=== PATIENT | male | born 1940 | race Two or more races ===

== ENCOUNTER 2017-10-22 19:22 | Emergency (ER) | payer OTHER ==
[~2017-10-22] VITALS: Ht 182.9 cm; Wt 88.5 kg
== END 2017-10-22 22:18 | disposition home or self-care (01) ==
LOC: ER 19:22
DX: M54.2 Cervicalgia (principal); T18.128A Food in esophagus causing other injury, initial encounter; X58.XXXA Exposure to other specified factors, initial encounter; Y93.89 Activity, other specified; Y92.89 Other specified places as the place of occurrence of the external cause; Y99.8 Other external cause status

== ENCOUNTER 2017-10-23 12:10 | Outpatient (CLI) | payer OTHER | END 2017-10-23 13:37 | disposition home or self-care (01) | LOC: TOM 12:10 | DX: R13.14 Dysphagia, pharyngoesophageal phase (principal) ==

== ENCOUNTER 2017-10-25 08:24 | Outpatient (CLI) | payer OTHER | END 2017-10-25 08:35 | disposition home or self-care (01) | LOC: RX STUDY 08:24 | DX: R13.19 Other dysphagia (principal) ==

== ENCOUNTER 2017-10-30 10:48 | Outpatient (CLI) | payer OTHER ==
[~2017-10-30] VITALS: Ht 177.8 cm; Wt 95.3 kg
== END 2017-10-30 11:10 | disposition home or self-care (01) ==
LOC: OFIC 805 10:48
DX: J04.0 Acute laryngitis (principal); K21.9 Gastro-esophageal reflux disease without esophagitis; J02.8 Acute pharyngitis due to other specified organisms; R13.19 Other dysphagia

== ENCOUNTER 2017-11-12 11:04 | Outpatient (CLI) | payer OTHER ==
[~2017-11-12] VITALS: Ht 152.4 cm; Wt 95.3 kg
== END 2017-11-12 11:20 | disposition home or self-care (01) ==
LOC: OFIC 805 11:04
DX: K21.0 Gastro-esophageal reflux disease with esophagitis (principal); R13.19 Other dysphagia

== ENCOUNTER 2019-03-25 13:41 | Outpatient (CLI) | payer OTHER | END 2019-03-25 13:50 | disposition home or self-care (01) | LOC: RAD 501 13:41 | DX: M54.2 Cervicalgia (principal); M54.5 Low back pain ==

== ENCOUNTER 2019-04-07 14:22 | Outpatient (CLI) | payer OTHER | END 2019-04-07 14:46 | disposition home or self-care (01) | LOC: NUCLEAR 14:22 | DX: I65.29 Occlusion and stenosis of unspecified carotid artery (principal) ==

== ENCOUNTER 2022-03-21 07:25 | Outpatient (CLI) | payer OTHER | END 2022-03-21 07:28 | disposition home or self-care (01) | LOC: LAB 07:25 | PROVIDERS: ATTEND Radiology Diagnostic Radiology | DX: M54.07 Panniculitis affecting regions of neck and back, lumbosacral region (principal) ==

== ENCOUNTER 2022-03-22 06:59 | Outpatient (CLI) | payer OTHER | END 2022-03-22 07:25 | disposition home or self-care (01) | LOC: MRI 06:59 | PROVIDERS: ATTEND Internal Medicine | DX: M25.561 Pain in right knee (principal); M25.562 Pain in left knee; M54.17 Radiculopathy, lumbosacral region | CPT/HCPCS: 72158; 73721; Q9965; 72149 ==

== ENCOUNTER 2023-03-14 11:34 | Outpatient (CLI) | payer OTHER | END 2023-03-14 11:36 | disposition home or self-care (01) | LOC: NUCLEAR 11:34 | PROVIDERS: ATTEND Internal Medicine | DX: I11.9 Hypertensive heart disease without heart failure (principal); Z01.810 Encounter for preprocedural cardiovascular examination ==

== ENCOUNTER 2024-05-27 07:13 | Outpatient (CLI) | payer OTHER | END 2024-05-27 07:14 | disposition home or self-care (01) | LOC: NUCLEAR 07:13 | PROVIDERS: ATTEND Internal Medicine | DX: I20.9 Angina pectoris, unspecified (principal) | CPT/HCPCS: 78452; 93017; A9500; J0153 ==

== ENCOUNTER 2025-01-05 11:05 | Outpatient (CLI) | payer OTHER | END 2025-01-05 11:09 | disposition home or self-care (01) | LOC: RAD 11:05 | PROVIDERS: ATTEND Internal Medicine | DX: J44.9 Chronic obstructive pulmonary disease, unspecified (principal) ==

== ENCOUNTER 2025-01-05 14:09 | Inpatient (IN) | payer OTHER ==
[~2025-01-05] VITALS: Ht 180.3 cm; Wt 189.6 kg
[2025-01-05 14:58] LABS: HEMATOCRIT 36.2 % (39.0-48.0); HEMOGLOBIN 12.4 g/dL (13-16.00); MEAN CELL VOLUME 88.9 fL (80.0-100.00); MEAN CORPUSCULAR HEMOGLOBIN 30.3 pg (27.00-32.0); MEAN CORPUSCULAR HGB CONC 34.1 g/dl (32.0-36.0); PLATELET COUNT 453 K/uL (150-450); RED BLOOD COUNT 4.08 M/uL (4.00-6.00); RED CELL DISTRIBUTION WIDTH 14.5 % (11.5-14.5)
[2025-01-05 15:39] LABS: INR 1.22; PARTIAL THROMBOPLASTIN TIME 36.9 SECONDS (22.0-34.0); PROTHROMBIN TIME 13.1 SECONDS (9.0-11.5)
[2025-01-05 16:17] LABS: ALBUMIN 2.9 gm/dL (3.4-5.0); BILIRUBIN TOTAL 0.48 mg/dL (0.3-1.2); CALCIUM 9.6 mg/dL (8.5-10.1); CREATININE SERUM 1.41 mg/dL (0.70-1.30); GFR 47.77; GLOBULINA 5.5 G/DL (2.4-3.5); POTASSIUM 5.27 mEq/L (3.5-5.1); TOTAL PROTEIN 8.4 gm/dL (6.4-8.2)
[2025-01-05 16:38] VITALS: BP 123/68; O2SAT 99
[2025-01-05] MEDS ORDERED: 0.9 % SODIUM CHLORIDE 1,000 ML IV SCH (17:15)
[2025-01-05] MEDS ORDERED: ALBUTEROL SULFATE 3 ML/2.5 MG AMPUL.NEB IH SCH (18:00)
[2025-01-05] MEDS ORDERED: IRON FUM,PS/FOLIC/BCOMP,C NO.9 1 CAP CAPSULE PO SCH (18:40)
[2025-01-05] MEDS ORDERED: CEFTRIAXONE SODIUM 2,000 MG VIAL IV SCH (18:41)
[2025-01-05] MEDS ORDERED: SODIUM POLYSTYRENE SULFONATE 30G/8 TSP PO STA (18:41)
[2025-01-05] MEDS ORDERED: AZITHROMYCIN 500 MG VIAL IV SCH (18:42)
[2025-01-05] MEDS ORDERED: AZITHROMYCIN 500 MG VIAL IV ONE (18:49)
[2025-01-05 19:10] LABS: ABG PH 7.428 (7.35-7.45); ABG PO2 91.6 mmHg (80-100); ABG pCO2 31.2 mmHg (35-45); BICARBONATE 20.1 mmol/l (23-25); SaO2 97.2 %; Tco2 21.1 mmol/l
[2025-01-05 20:22] LABS: allen test SATISFACTORY; o2 21 %; puncture site RADIAL LEFT
[2025-01-05] MEDS ORDERED: ALPRAzolam 0.25 MG TABLET PO SCH (21:00)
[2025-01-05] MEDS ORDERED: FAMOTIDINE/PF 20 MG/2 ML VIAL IV SCH (21:00)
[2025-01-05 21:20] LABS: PH,URINE 5.5 (5.0-8.0); URINE APPEARANCE Clear; URINE BILIRRUBIN Negative (NEGATIVE); URINE BLOOD Negative; URINE COLOR Yellow; URINE GLUCOSE Negative (NEGATIVE); URINE KETONE Negative (NEGATIVE); URINE LEUKOCYTE Small; URINE NITRATE Negative; URINE PROTEIN Negative (NEGATIVE); URINE UROBILINOGEN 0.2 E.U./dl
[2025-01-05 21:24] LABS: URINE BACTERIA 48.9 uL (0.0-1933); URINE WBC 61.2 uL (0.0-23.2)
[2025-01-05 21:35] LABS: URINE CAST 0.73 uL (0.0-1.40); URINE RBC 1.6 uL (0.0-20.8)
[2025-01-06 01:02] VITALS: BP 137/78; O2SAT 96
[2025-01-06] MEDS ORDERED: AZITHROMYCIN 500 MG VIAL IV ONE (07:38)
[2025-01-06 07:39] LABS: HEMATOCRIT 36.8 % (39.0-48.0); HEMOGLOBIN 12.1 g/dL (13-16.00); MEAN CELL VOLUME 89.7 fL (80.0-100.00); MEAN CORPUSCULAR HEMOGLOBIN 29.4 pg (27.00-32.0); MEAN CORPUSCULAR HGB CONC 32.8 g/dl (32.0-36.0); PLATELET COUNT 406 K/uL (150-450); RED CELL DISTRIBUTION WIDTH 14.4 % (11.5-14.5)
[2025-01-06 07:41] LABS: ERYTHROCYTE SEDIMENTATION RATE > 130 mm/hr
[2025-01-06 08:19] LABS: ALBUMIN 2.8 gm/dL (3.4-5.0); BILIRUBIN TOTAL 0.61 mg/dL (0.3-1.2); CALCIUM 9.5 mg/dL (8.5-10.1); CREATININE SERUM 1.19 mg/dL (0.70-1.30); GFR 58.1; GLOBULINA 5.5 G/DL (2.4-3.5); POTASSIUM 4.63 mEq/L (3.5-5.1); TOTAL PROTEIN 8.3 gm/dL (6.4-8.2)
[2025-01-06 08:22] LABS: C-REACTIVE PROTEIN 9.08 MG/DL (0.00-0.29)
[2025-01-06] MEDS ORDERED: levoFLOXacin IN DEXTROSE 5 % 150 ML IV SCH (09:00)
[2025-01-06] MEDS ORDERED: LOSARTAN POTASSIUM 100 MG TABLET PO SCH (09:00)
[2025-01-06] MEDS ORDERED: AMLODIPINE BESYLATE 10 MG TABLET PO SCH (09:00)
[2025-01-06] MEDS ORDERED: ATENOLOL 25 MG TABLET PO SCH (09:00)
[2025-01-06 10:13] VITALS: BP 144/78; O2SAT 97
[2025-01-06] MEDS ORDERED: DIATRIZOATE MEGLUMINE, SODIUM 30 ML BOTTLE PO STA (12:31)
[2025-01-06] MEDS ORDERED: DOXAZOSIN MESYLATE 2 MG TABLET PO SCH (17:00)
[2025-01-06 18:00] VITALS: BP 138/77; O2SAT 96
[2025-01-06] MEDS ORDERED: BENZONATATE 200 MG CAPSULE PO SCH (18:28)
[2025-01-07 01:09] VITALS: BP 118/66; O2SAT 97
[2025-01-07] MEDS ORDERED: AZITHROMYCIN 500 MG VIAL IV ONE (07:04)
[2025-01-07 08:00] VITALS: BP 139/69; O2SAT 96
[2025-01-07 08:15] LABS: HEMATOCRIT 33.3 % (39.0-48.0); HEMOGLOBIN 11.4 g/dL (13-16.00); MEAN CELL VOLUME 88.5 fL (80.0-100.00); MEAN CORPUSCULAR HEMOGLOBIN 30.3 pg (27.00-32.0); MEAN CORPUSCULAR HGB CONC 34.3 g/dl (32.0-36.0); PLATELET COUNT 347 K/uL (150-450); RED BLOOD COUNT 3.76 M/uL (4.00-6.00); RED CELL DISTRIBUTION WIDTH 14.5 % (11.5-14.5)
[2025-01-07 08:51] LABS: ALBUMIN 2.5 gm/dL (3.4-5.0); BILIRUBIN TOTAL 0.51 mg/dL (0.3-1.2); CALCIUM 9.3 mg/dL (8.5-10.1); CREATININE SERUM 0.85 mg/dL (0.70-1.30); GFR 85.67; GLOBULINA 4.7 G/DL (2.4-3.5); POTASSIUM 4.24 mEq/L (3.5-5.1); TOTAL PROTEIN 7.2 gm/dL (6.4-8.2)
[2025-01-07] MEDS ORDERED: AMLODIPINE BESYLATE 5 MG TABLET PO SCH (09:00)
[2025-01-07 16:00] VITALS: BP 120/73; O2SAT 95
[2025-01-07] MEDS ORDERED: fentaNYL CITRATE 50 MCG/ML AMPUL IV PUSH ONE (18:45)
[2025-01-07] MEDS ORDERED: MIDAZOLAM HCL 2 MG/2 ML VIAL IV PUSH ONE (18:45)
[2025-01-07] MEDS ORDERED: MORPHINE SULFATE 4 MG/ML CARTRIDGE IV PRN (20:15)
[2025-01-07 21:46] LABS: ABG PH 7.466 (7.35-7.45); ABG PO2 75.3 mmHg (80-100); ABG pCO2 30.4 mmHg (35-45); BASE EXCESS -1.2 mmol/l; BICARBONATE 21.4 mmol/l (23-25); SaO2 95.8 %; Tco2 22.3 mmol/l
[2025-01-07 21:47] LABS: allen test SATISFACTORY; o2 32 %; puncture site RADIAL LEFT
[2025-01-07 23:58] VITALS: BP 144/80; O2SAT 97
[2025-01-08] MEDS ORDERED: AZITHROMYCIN 500 MG VIAL IV ONE (06:02)
[2025-01-08 08:09] LABS: HEMATOCRIT 33.8 % (39.0-48.0); HEMOGLOBIN 11.1 g/dL (13-16.00); MEAN CELL VOLUME 89.1 fL (80.0-100.00); MEAN CORPUSCULAR HEMOGLOBIN 29.4 pg (27.00-32.0); PLATELET COUNT 339 K/uL (150-450); RED BLOOD COUNT 3.79 M/uL (4.00-6.00); RED CELL DISTRIBUTION WIDTH 14.9 % (11.5-14.5)
[2025-01-08 08:51] VITALS: BP 147/70; O2SAT 97
[2025-01-08 16:00] VITALS: BP 127/70; O2SAT 95
[2025-01-08] MEDS ORDERED: RINGERS SOLUTION,LACTATED 1,000 ML IV SCH (17:15)
[2025-01-08] MEDS ORDERED: IRON FUM,PS/FOLIC/BCOMP,C NO.9 1 CAP CAPSULE PO SCH (18:35)
[2025-01-08] MEDS ORDERED: FAMOtidine 20 MG TABLET PO SCH (21:00)
[2025-01-09 00:34] VITALS: BP 139/74; O2SAT 97
[2025-01-09] MEDS ORDERED: AZITHROMYCIN 500 MG VIAL IV ONE (06:03)
[2025-01-09 07:52] LABS: HEMATOCRIT 31.6 % (39.0-48.0); HEMOGLOBIN 10.8 g/dL (13-16.00); MEAN CELL VOLUME 88.2 fL (80.0-100.00); MEAN CORPUSCULAR HGB CONC 34.1 g/dl (32.0-36.0); PLATELET COUNT 311 K/uL (150-450); RED BLOOD COUNT 3.59 M/uL (4.00-6.00); RED CELL DISTRIBUTION WIDTH 14.3 % (11.5-14.5)
[2025-01-09 08:13] LABS: ALBUMIN 2.2 gm/dL (3.4-5.0); BILIRUBIN TOTAL 0.59 mg/dL (0.3-1.2); CALCIUM 8.6 mg/dL (8.5-10.1); CREATININE SERUM 0.81 mg/dL (0.70-1.30); GFR 90.57; GLOBULINA 4.7 G/DL (2.4-3.5); POTASSIUM 3.85 mEq/L (3.5-5.1); TOTAL PROTEIN 6.9 gm/dL (6.4-8.2)
[2025-01-09 08:41] VITALS: BP 133/81; O2SAT 95
[2025-01-09] MEDS ORDERED: AMLODIPINE BESYLATE 5 MG TABLET PO SCH (09:00)
[2025-01-09 09:13] LABS: ABG pCO2 30.1 mmHg (35-45); BASE EXCESS 0.8 mmol/l; BICARBONATE 22.9 mmol/l (23-25); SaO2 93.3 %; Tco2 23.8 mmol/l
[2025-01-09 09:56] LABS: allen test SATISFACTORY; puncture site RADIAL RIGHT
[2025-01-09 09:57] LABS: o2 21 %
[2025-01-09] MEDS ORDERED: TUBERCULIN,PURIF.PROT.DERIV. 10 SKIN.TEST SKIN.TEST ID NR (13:00)
[2025-01-09 16:00] VITALS: BP 135/70; O2SAT 96
[2025-01-09] MEDS ORDERED: IPRATROPIUM BROMIDE 0.5 MG/2.5 ML AMPUL.NEB IH SCH (17:00)
[2025-01-09 17:10] LABS: afb smear Negative (.); afb spe proc Concentration (.)
[2025-01-10] MEDS ORDERED: AZITHROMYCIN 500 MG VIAL IV ONE (07:35)
[2025-01-10 08:00] VITALS: BP 145/66; O2SAT 95
[2025-01-10] MEDS ORDERED: CODEINE PHOSPHATE/GUAIFENESIN 5 ML ML PO PRN (14:15)
[2025-01-10 16:31] VITALS: BP 118/64; O2SAT 95
[2025-01-11 00:33] VITALS: BP 134/83; O2SAT 94
[2025-01-11 07:17] LABS: BILIRUBIN TOTAL 0.61 mg/dL (0.3-1.2); CALCIUM 8.4 mg/dL (8.5-10.1); CREATININE SERUM 0.81 mg/dL (0.70-1.30); GFR 90.57; GLOBULINA 4.2 G/DL (2.4-3.5); PHOSPHOROUS 2.7 mg/dL (2.5-4.9); POTASSIUM 3.62 mEq/L (3.5-5.1); TOTAL PROTEIN 6.2 gm/dL (6.4-8.2)
[2025-01-11 07:22] LABS: HEMATOCRIT 29.1 % (39.0-48.0); MEAN CELL VOLUME 88.8 fL (80.0-100.00); MEAN CORPUSCULAR HEMOGLOBIN 30.5 pg (27.00-32.0); MEAN CORPUSCULAR HGB CONC 34.3 g/dl (32.0-36.0); PLATELET COUNT 295 K/uL (150-450); RED BLOOD COUNT 3.28 M/uL (4.00-6.00); RED CELL DISTRIBUTION WIDTH 14.7 % (11.5-14.5)
[2025-01-11 08:04] LABS: MAGNESIUM 1.2 mg/dL (1.8-2.4)
[2025-01-11 09:11] VITALS: BP 116/62; O2SAT 96
[2025-01-11] MEDS ORDERED: MAGNESIUM SULFATE IN WATER 4 GM/100 ML PIGGYBACK IV NR (09:30)
[2025-01-11 16:00] VITALS: BP 115/68; O2SAT 90
[2025-01-11 20:00] VITALS: BP 122/65; O2SAT 90
[2025-01-12 00:51] VITALS: BP 104/53; O2SAT 95
[2025-01-12 08:00] VITALS: BP 128/60; O2SAT 91
[2025-01-12] MEDS ORDERED: MOXIFLOXACIN H400 MG PO (15:22)
[2025-01-12] MEDS ORDERED: ARICEPT5 MG PO (15:22)
[2025-01-12] MEDS ORDERED: DOXAZOSIN MESYLA2 MG PO (15:22)
[2025-01-12] MEDS ORDERED: INTESTINEX680 M1 PO (15:22)
[2025-01-12] MEDS ORDERED: NORVASC5 MG PO (15:22)
[2025-01-12] MEDS ORDERED: ATORVASTATIN CA10 MG PO (15:22)
[2025-01-12] MEDS ORDERED: TENORMIN25 MG PO (15:22)
[2025-01-12] MEDS ORDERED: SYNTHROID75 MCG PO (15:22)
[2025-01-12] MEDS ORDERED: COZAAR100 MG PO (15:22)
[2025-01-12] MEDS ORDERED: fentaNYL CITRATE 50 MCG/ML AMPUL IV PUSH ONE (16:45)
[2025-01-12] MEDS ORDERED: MIDAZOLAM HCL 2 MG/2 ML VIAL IV PUSH ONE (16:45)
[2025-01-12 17:34] VITALS: BP 90/57; O2SAT 95
== END 2025-01-12 18:30 | disposition home or self-care (01) | DRG 167 ==
LOC: SURH 14:09
PROVIDERS: Internal Medicine; ADMIT Internal Medicine; ATTEND Internal Medicine
PROC: 3E0F7GC Introduction of Other Therapeutic Substance into Respiratory Tract, Via Natural or Artificial Opening (ICD-10-PCS; 2025-01-05)
PROC: BB24YZZ Computerized Tomography (CT Scan) of Bilateral Lungs using Other Contrast (ICD-10-PCS; 2025-01-06)
PROC: BW21ZZZ Computerized Tomography (CT Scan) of Abdomen and Pelvis (ICD-10-PCS; 2025-01-06)
PROC: 0B9 Respiratory System, Drainage (ICD-10-PCS; principal; 2025-01-07)
PROC: 0BBC3ZX Excision of Right Upper Lung Lobe, Percutaneous Approach, Diagnostic (ICD-10-PCS; 2025-01-07)
PROC: BW40ZZZ Ultrasonography of Abdomen (ICD-10-PCS; 2025-01-09)
DX: J85.1 Abscess of lung with pneumonia (principal); N17.9 Acute kidney failure, unspecified; R04.2 Hemoptysis; L92.8 Other granulomatous disorders of the skin and subcutaneous tissue; R22.2 Localized swelling, mass and lump, trunk; J44.9 Chronic obstructive pulmonary disease, unspecified; R63.4 Abnormal weight loss; D64.9 Anemia, unspecified; N28.1 Cyst of kidney, acquired; K80.20 Calculus of gallbladder without cholecystitis without obstruction; I12.9 Hypertensive chronic kidney disease with stage 1 through stage 4 chronic kidney disease, or unspecified chronic kidney disease; E03.9 Hypothyroidism, unspecified; E78.5 Hyperlipidemia, unspecified; N18.2 Chronic kidney disease, stage 2 (mild); G47.33 Obstructive sleep apnea (adult) (pediatric); Z87.891 Personal history of nicotine dependence; B96.89 Other specified bacterial agents as the cause of diseases classified elsewhere